=== PATIENT | female | born 1980 | race Caucasian/White ===

== ENCOUNTER 2016-02-22 03:35 | Inpatient (IN) | payer BC, OTHER ==
[2016-02-22] VITALS (96 sets, daily range): BP systolic 81–142; BP diastolic 39–92; PULSE 62–166; RESP 16–18; TEMP 97.9–98.4
[~2016-02-22] VITALS: Ht 157.5 cm; Wt 73.5 kg
[~2016-02-22 03:35] MED LIST: PREN1TAB18
[2016-02-22] MEDS ORDERED: LACTATED RINGER'S 1000 ML INJ 1,000 ML IV PRN (03:58)
[2016-02-22] MEDS ORDERED: ceFAZolin 2 GM PREMIX 50 ML IV ONE (04:00)
[2016-02-22] MEDS ORDERED: MINERAL OIL 10 ML VIAL TOPICAL PRN (04:00)
[2016-02-22] MEDS ORDERED: LIDOCAINE HCL 1% 50 ML VIAL I-DERMAL PRN (04:00)
[2016-02-22] MEDS ORDERED: SODIUM CHLORID 0.9% 500 ML INJ 500 ML IV PRN (04:00)
[2016-02-22] MEDS ORDERED: CITRIC ACID-SODIUM CITRATE LIQ 30 ML UDC PO SCH (04:00)
[2016-02-22] MEDS ORDERED: OXYTOCIN 30 UNITS-500ML PREMIX 500 ML IV ONE (04:00)
[2016-02-22] MEDS ORDERED: ONDANSETRON HCL 4 MG/2 ML VIAL IV PRN (04:00)
[2016-02-22] MEDS ORDERED: LIDOCAINE HCL 1% 50 ML VIAL INFIL PRN (04:00)
[2016-02-22] MEDS ORDERED: SODIUM CHLOR 0.9% 1000 ML INJ 1,000 ML IV PRN (04:18)
--- NOTE | 2016-02-22 04:28 | HHI.HP ---
HPI Chief Complaint Rupture of membranes Date Seen: Feb 22, 2016 Time Seen: 04:00 Travel History International Travel<30 Days: No Contact w/Intl Traveler<30Days: No Known Affected Area: No History of Present Illness HPI 36-year-old at 40 weeks and 4 days of gestation, EDC 02/18/16, patient presents to OB ED with complain of contractions and sudden rupture of membranes at 02.30 hours today. The patient denies vaginal bleeding. She reports presence of movement. She stated that contractions are regular. care is with the [facility], course is significant for advanced maternal age and fetus with cleft heart palate and unilateral cleft lip and GBS positive. Amnisure test performed in OB ED is positive. Para: 0 : 2 Miscarriage: 1 : 0 History Past Medical History Narrative Medical History of ovarian cysts Obstetric History Obstetric History Spontaneous 1 Past Surgical History Narrative Surgical Status post laparoscopic bilateral ovarian cystectomy in March 2014 Family History Narrative Family History Grandmother had diabetes and hypertension, mother suffered heart attack, father has heart disease Social History Alcohol Use: No Tobacco Use: No Substance Abuse: No Allergies-Medications (Allergen,Severity, Reaction): Coded Allergies: Penicillin (Verified Allergy, Severe, Hives, 02/20/16) Home Meds Reported Medications Vitamins W/ Fe Aspart (Prenate Star 20-1 mg)1 Tab Tab 12/13/15 Review of Systems Except as stated in HPI: all other systems reviewed are Neg Genitourinary: Other (premature rupture of membranes, contractions) Physical Exam Narrative GENERAL: Well-nourished, well-developed patient. SKIN: Warm and dry. HEAD: Normocephalic and atraumatic. EYES: No scleral icterus. No injection or drainage. ENT: No nasal drainage noted. Mucous membranes pink. Airway patent. NECK: Supple, trachea midline. No JVD. CARDIOVASCULAR: Regular rate and rhythm without murmurs, gallops, or rubs. RESPIRATORY: Breath sounds equal bilaterally. No accessory muscle use. BREASTS: Bilateral exam showed no masses , no retractions, no nipple discharge. ABDOMEN/GI: Abdomen soft, gravid, non-tender, bowel sounds present, no rebound, no guarding Gravid to 41 weeks size Fundal Height: 41 cm GENITOURINARY: External Genitalia: intact and normal in appearance BUS glands: Normal Cervix: 1 cm, 80% effaced, -3 station, posterior, patient is grossly ruptured with pooling of fluid in the vaginal vault Dilatation: 1 cm Effacement: 80% Station: -3 Presentation: Cephalic Membranes: Intact Uterine Contractions: Irregular FHT's: Category: one Baseline: 130s Reactive: Yes Variability: Moderate Decels: None EXTREMITIES: No cyanosis or edema. BACK: Nontender without obvious deformity. No CVA tenderness. NEUROLOGICAL: Awake and alert. Motor and sensory grossly within normal limits. Five out of 5 muscle strength in all muscle groups. Normal speech. Data Data Vital Signs Reviewed: Yes Orders Ob (2e) Additional Admit Info (02/22/16 03:57) Admit To Inpatient (02/22/16 ) Code Status (02/22/16 03:58) Vital Signs (Adult) .Per protocol (02/22/16 03:58) ^ Heart (02/22/16 03:58) ^ Amnioinfusion (02/22/16 03:58) Urinary Catheter Management .ONCE (02/22/16 03:58) Diet Liquid (02/22/16 Breakfast) Lactated Ringer's 1000 Ml Inj (Lr 1000 M (02/22/16 03:58) Lactated Ringer's 1000 Ml Inj (Lr 1000 M (02/22/16 03:58) Sodium Chlorid 0.9% 500 Ml Inj (Ns 500 M (02/22/16 04:00) Sodium Chlor 0.9% 1000 Ml Inj (Ns 1000 M (02/22/16 04:18) Lidocaine 1% Inj (50 Ml) (Xylocaine 1% I (02/22/16 04:00) Citric Acid-Sodium Citrate Liq (Bicitra (02/22/16 04:00) Ondansetron Inj (Zofran Inj) (02/22/16 04:00) Fentanyl Inj (Fentanyl Inj) (02/22/16 04:00) Fentanyl Inj (Fentanyl Inj) (02/22/16 04:00) Cefazolin 2 Gm Premix (Ancef 2 Gm Premix (02/22/16 04:00) Cefazolin Inj (Ancef Inj) (02/22/16 08:00) Complete Blood Count With Diff (02/22/16 03:58) Hold Clot (02/22/16 03:58) Abo/Rh Blood Type (02/22/16 03:58) Urinalysis - C+S If Indicated (02/22/16 03:58) Type And Screen (02/22/16 03:58) Resp Oxygen Non Rebreathe Mask (02/22/16 ) ^ Epidural / Intrathecal Infus (02/22/16 03:58) Oxytocin 30 Units-500ml Premix (Pitocin (02/22/16 04:00) Lidocaine 1% Inj (50 Ml) (Xylocaine 1% I (02/22/16 04:00) Light Mineral Oil (Muri-Lube Oil) (02/22/16 04:00) Inpatient Certification (02/22/16 ) Assessment/Plan Problem List: (1) Post term over 40 weeks (2) Premature rupture of membranes (3) Positive GBS test (4) 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 1. Postterm /Premature rupture of membranes in active labor * Admit to labor and delivery * Continuous heart monitoring * Send admission blood work * Monitor progress of labor * Pitocin for augmentation of labor * Anticipate vaginal delivery * Keep patient nothing by mouth * Patient may have IV pain medications or epidural for pain management 2. GBS positive * We'll give Ancef for GBS prophylaxis(patient allergic to penicillin with rash) * 3. Fetus with cleft hard palate with unilateral cleft lip * Will notify neonatology and respiratory team Discharge Planning We'll discharge patient to home in 2-3 days after delivery Vladimir Anders MD Feb 22, 2016 04:28
[2016-02-22] MEDS: LACTATED RINGER'S 1000 ML INJ 1,000 ML IV SCH ×2 (04:30→11:58)
[2016-02-22 04:42] LABS: AUTOMATED NEUTROPHIL # 11.5 TH/MM3 (1.8-7.7); BASOPHIL # 0.1 TH/MM3 (0-0.2); BASOPHIL % 0.6 % (0.0-2.0); EOSINOPHIL # 0.1 TH/MM3 (0-0.4); EOSINOPHIL % 0.7 % (0.0-4.0); HEMATOCRIT 35.3 % (35.0-46.0); HEMO FLAGS AUTO DIFF; LYMPH % 19.4 % (9.0-44.0); MEAN CELL VOLUME 86.9 FL (80.0-100.0); MEAN CORPUSCULAR HEMOGLOBIN 30.4 PG (27.0-34.0); MONO % 5.3 % (0.0-8.0); PLATELET COUNT 256 TH/MM3 (150-450); RED BLOOD COUNT 4.06 MIL/MM3 (4.00-5.30); RED CELL DISTRIBUTION WIDTH 13.2 % (11.6-17.2); WHITE BLOOD COUNT 15.5 TH/MM3 (4.0-11.0)
[2016-02-22 04:52] LABS: BACTERIA, URINE OCC /hpf; BLOOD, URINE TRACE (NEG); COMMENT (UR) CULTURE INDICATED; CULTURE IF INDICATED CULTURE INDICATED; GLUCOSE,URINE NEG (NEG); HYALINE CAST, URINE 3 /lpf (RARE); KETONE, URINE NEG (NEG); MUCUS URINE FEW /lpf (OCC); NITRITE,URINE NEG (NEG); SQUAMOUS EPITHELIAL CELL URINE 15 /hpf (0-5); URINE COLOR LIGHT-YELLOW (YELLW/STRAW)
[2016-02-22 05:33] LABS: BANDS 6 % (0-6); BASOPHILS 2 % (0-2); METAMYELOCYTES 1 % (0-1); NEUTROPHIL # MANUAL DIFF 12.1 TH/MM3 (1.8-7.7); POLYS (SEG NEUTROPHILS) 70 % (16-70); PROMYELOCYTES 1 % (0-0); SCAN/DIFF FINAL DIFF MANUAL; WBC DIFF SAMPLE 100
[2016-02-22 05:34] LABS: PLATELET ESTIMATE SMEAR NORMAL (NORMAL); PLATELET MORPHOLOGY NORMAL (NORMAL)
[2016-02-22] MEDS ORDERED: OXYTOCIN 30 UNITS-500ML PREMIX 500 ML IV SCH (08:15)
--- NOTE | 2016-02-22 10:23 | PD.LABORPN ---
Subjective Subjective Changing shifts Dr. Son coming on duty; Chart reviewed this patient is a 36-year-old 2 para 0 at 40 weeks and 4 days who presented this a.m. 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 Advanced maternal age Baby has a cleft palate and cleft lip Presently she is lizy every 4-5 minutes moderate intensity IUPC is in place patient does not desire an epidural or any pain medicine at this point A review of the monitor strip including the heart rate monitor and uterine contraction monitor were reviewed with the parents A review of Pitocin was done Questions were answered Objective Vital Signs Vital Signs Date Time Temp Pulse Resp B/P Pulse Ox O2 Delivery O2 Flow Rate FiO2 02/22/16 07:11 98.3 02/22/16 07:11 16 02/22/16 07:10 84 115/81 02/22/16 04:05 18 Objective Pelvic Exam: Cervix: [-] Midline soft Dilatation: [-] 2-3 cm dilated Effacement: [-] 100% effaced Station: [-] -2 station Presentation: [-] Vertex Membranes: ruptured] Uterine Contractions: [-] Every 4-5 minutes FHT's: Category: [-] 1 Baseline: [-] 140 Reactive: [-] + Accelerations up to 170 Variability: [-] Moderate fkak-ta-czed variability Decels: [-] None Assessment/Plan Problem List: (1) Post term over 40 weeks (2) Premature rupture of membranes (3) Positive GBS test (4) 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
--- NOTE | 2016-02-22 10:45 | PD.LABORPN ---
Subjective Subjective 36 y/o at 40/4 weeks. Admitted for SROM early this morning. Patient seen and examined this morning. Denies any complaints/concerns. Currently dilated to 2-3 cm. Having contractions every 3-4 minutes. Denies any headache, changes in vision, chest pain, SOB, leg pain. (Gustavo Partida MD R1) Objective Vital Signs Vital Signs Date Time Temp Pulse Resp B/P Pulse Ox O2 Delivery O2 Flow Rate FiO2 02/22/16 07:11 98.3 02/22/16 07:11 16 02/22/16 07:10 84 115/81 02/22/16 04:05 18 Objective Pelvic Exam: Cervix: Midline soft Dilatation: 2-3 cm Effacement: 100% Station: -2 Presentation: Vertex Membranes: Ruptured Uterine Contractions: Every 4-5 minutes FHT's: Category: 1 Baseline: 140 Reactive: yes Variability: moderate Decels: None (Gustavo Partida MD R1) Assessment/Plan Problem List: (1) Post term over 40 weeks (2) Premature rupture of membranes (3) Positive GBS test (4) 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 Plan - Expectant management - Continuous heart monitoring - GBS positive; receiving Ancef - Continue Pitocin - Anticipate vaginal delivery (Gustavo Partida MD R1) Assessment and Plan Patient seen and examined with the resident under direct supervision, I agree with the assessment and plan. (Vladimir Anders MD) Gustavo Partida MD R1 Feb 22, 2016 10:45 Vladimir Anders MD Feb 23, 2016 17:35
[2016-02-22] MEDS ORDERED: fentaNYL 2MCG-BUPIV 0.125% INJ 100 ML ONE (12:01)
[2016-02-22] MEDS ORDERED: ePHEDrine/NS 50 MG/5 ML SYR ONE (12:01)
--- NOTE | 2016-02-22 14:30 | PD.LABORPN ---
Subjective Subjective Patient lying in bed. Feeling pressure. Given ephedrine for low blood pressures. 4cm at 1419 this afternoon. Objective Vital Signs Vital Signs Date Time Temp Pulse Resp B/P Pulse Ox O2 Delivery O2 Flow Rate FiO2 02/22/16 13:54 16 02/22/16 13:45 67 102/55 02/22/16 13:40 73 02/22/16 13:36 63 109/50 02/22/16 13:35 76 02/22/16 13:31 72 108/46 02/22/16 13:30 79 02/22/16 13:25 80 02/22/16 13:20 77 02/22/16 13:18 65 102/58 02/22/16 13:17 16 02/22/16 13:15 77 101/47 02/22/16 13:10 71 02/22/16 13:05 72 02/22/16 13:01 88 102/59 02/22/16 13:00 73 02/22/16 12:55 81 02/22/16 12:50 78 02/22/16 12:48 85 100/63 02/22/16 12:45 67 02/22/16 12:40 89 99/57 02/22/16 12:37 88/56 02/22/16 12:37 166 02/22/16 12:37 103/62 02/22/16 12:35 80 02/22/16 12:30 98.3 02/22/16 12:30 73 02/22/16 12:26 144 101/60 02/22/16 12:25 75 02/22/16 12:25 16 02/22/16 12:20 85 100/56 02/22/16 12:20 85 02/22/16 12:15 82 02/22/16 12:12 81 106/64 02/22/16 12:10 84 02/22/16 12:00 16 02/22/16 11:44 16 02/22/16 10:48 75 113/68 02/22/16 10:48 97.9 02/22/16 10:47 16 02/22/16 07:11 98.3 02/22/16 07:11 16 02/22/16 07:10 84 115/81 Objective Pelvic Exam: Cervix: midline Dilatation: 4 Effacement: 100% Station: -2 Presentation: vertex Membranes: ruptured Uterine Contractions: every 1-4 minutes FHT's: Category: 1 Baseline: 135 Reactive: yes Variability: moderate Decels: none Assessment/Plan Problem List: (1) Post term over 40 weeks (2) Premature rupture of membranes (3) Positive GBS test (4) 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 4 cm dilated. Contractions every 1-4 minutes. - Continue expectant management, pitocin - Continuous heart monitoring - Monitor maternal blood pressures - Plan for vaginal delivery Gustavo Partida MD R1 Feb 22, 2016 14:29
[2016-02-22] MEDS ORDERED: NO SYSTEM NARCOTICS XX PRN (15:15)
[2016-02-22] MEDS ORDERED: ePHEDrine/NS 50 MG/5 ML SYR IV PRN (15:15)
[2016-02-22] MEDS ORDERED: fentaNYL 2MCG-BUPIV 0.125% INJ 100 ML EPIDURAL SCH (15:15)
[2016-02-22] MEDS ORDERED: DO NOT ADMINISTER ANTICOAGULANTS XX PRN (15:15)
--- NOTE | 2016-02-22 17:32 | PD.LABORPN ---
Subjective Subjective 5 cm dilated Category 1 tracing Pitocin at 6 milliunits Tractions every 2 minutes Continue to monitorr Objective Vital Signs Vital Signs Date Time Temp Pulse Resp B/P Pulse Ox O2 Delivery O2 Flow Rate FiO2 02/22/16 16:15 88 104/64 02/22/16 16:00 96 104/63 02/22/16 15:45 100 103/67 02/22/16 15:43 87 109/70 02/22/16 15:31 100 112/68 02/22/16 15:20 18 02/22/16 15:15 92 110/73 02/22/16 15:00 101 95/60 02/22/16 14:45 79 112/66 02/22/16 14:32 76 107/57 02/22/16 14:31 70 93/49 02/22/16 14:30 98.0 16 02/22/16 14:28 83 109/57 02/22/16 14:18 86 98/65 02/22/16 14:17 89 91/70 02/22/16 14:15 107/72 02/22/16 14:14 76 94/55 02/22/16 14:10 69 91/55 02/22/16 14:07 70 100/50 02/22/16 14:05 67 98/48 02/22/16 14:03 67 87/51 02/22/16 14:02 65 90/39 02/22/16 14:00 62 96/45 02/22/16 13:54 16 02/22/16 13:50 79 02/22/16 13:45 67 102/55 02/22/16 13:45 83 02/22/16 13:40 73 02/22/16 13:36 63 109/50 02/22/16 13:35 76 02/22/16 13:31 72 108/46 02/22/16 13:30 79 02/22/16 13:25 80 02/22/16 13:20 77 02/22/16 13:18 65 102/58 02/22/16 13:17 16 02/22/16 13:15 77 101/47 02/22/16 13:15 71 02/22/16 13:10 71 02/22/16 13:05 72 02/22/16 13:01 88 102/59 02/22/16 13:00 73 02/22/16 12:55 81 02/22/16 12:50 78 02/22/16 12:48 85 100/63 02/22/16 12:45 67 02/22/16 12:40 81 02/22/16 12:40 89 99/57 02/22/16 12:37 84 02/22/16 12:37 88/56 02/22/16 12:37 166 02/22/16 12:37 103/62 02/22/16 12:35 80 02/22/16 12:30 98.3 02/22/16 12:30 73 02/22/16 12:26 144 101/60 02/22/16 12:25 75 02/22/16 12:25 16 02/22/16 12:20 85 100/56 02/22/16 12:20 85 02/22/16 12:15 82 02/22/16 12:12 81 106/64 02/22/16 12:10 84 02/22/16 12:00 16 02/22/16 11:44 16 02/22/16 10:48 75 113/68 02/22/16 10:48 97.9 02/22/16 10:47 16 Objective Pelvic Exam: Cervix: [-] Dilatation: [-] Effacement: [-] Station: [-] Presentation: [-] Membranes: [intact or ruptured] Uterine Contractions: [-] FHT's: Category: [-] Baseline: [-] Reactive: [-] Variability: [-] Decels: [-] Assessment/Plan Problem List: (1) Post term over 40 weeks (2) Premature rupture of membranes (3) Positive GBS test (4) 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
[2016-02-22] MEDS ORDERED: LIDOCAINE HCL 1.5% PF SOLN 20 ML AMP ONE ×2 (18:16→20:25)
[2016-02-23] VITALS (20 sets, daily range): BP systolic 93–127; BP diastolic 55–76; PULSE 64–92; RESP 16–18; TEMP 98.3–99; O2SAT 94–97
[2016-02-23] MEDS: LACTATED RINGER'S 1000 ML INJ 1,000 ML IV SCH (00:19)
[2016-02-23] MEDS ORDERED: LACTATED RINGER'S 1000 ML INJ 1,000 ML IV ONE (01:55)
--- NOTE | 2016-02-23 01:55 | PD.LABORPN ---
Subjective Subjective Patient starting to feel her contractions with the epidural It was explained to the patient she has been 7 cm now for almost 3-1/2 hours Adequate contraction pattern with IUPC Category 1 tracing Objective Vital Signs Vital Signs Date Time Temp Pulse Resp B/P Pulse Ox O2 Delivery O2 Flow Rate FiO2 02/23/16 01:35 18 02/23/16 01:30 83 114/66 02/23/16 01:15 92 02/23/16 00:58 18 02/23/16 00:58 98.9 02/23/16 00:55 81 02/23/16 00:50 85 02/23/16 00:45 86 107/67 02/23/16 00:45 83 02/23/16 00:40 85 02/23/16 00:35 87 02/23/16 00:30 87 02/23/16 00:30 80 116/63 02/23/16 00:21 18 02/22/16 23:45 18 02/22/16 23:40 87 02/22/16 23:35 76 02/22/16 23:30 78 111/55 02/22/16 23:30 67 02/22/16 23:19 18 02/22/16 23:15 78 99/56 02/22/16 23:15 78 02/22/16 23:00 77 02/22/16 22:45 82 02/22/16 22:44 18 02/22/16 22:40 87 106/67 02/22/16 22:35 91 99/80 02/22/16 22:30 96 103/73 02/22/16 22:26 102 102/61 02/22/16 22:25 106 02/22/16 22:25 104 87/41 02/22/16 22:20 92 02/22/16 22:20 98 107/61 02/22/16 22:05 97 02/22/16 22:00 102 116/92 02/22/16 22:00 84 02/22/16 21:09 95 118/83 02/22/16 21:00 86 119/75 02/22/16 20:00 97 117/84 02/22/16 19:42 98.0 02/22/16 19:31 91 18 130/85 02/22/16 19:20 18 02/22/16 19:16 102 135/82 02/22/16 19:13 18 02/22/16 19:00 88 105/63 02/22/16 18:50 78 105/56 02/22/16 18:48 82 102/58 02/22/16 18:45 85 81/56 02/22/16 18:30 83 104/55 02/22/16 18:16 72 101/50 02/22/16 18:15 98.4 02/22/16 18:12 18 02/22/16 18:01 84 142/59 Objective Pelvic Exam: Cervix: [-] Midline Dilatation: [-] 7 cm Effacement: [-] 100% effaced Station: [-] -1-0 station Presentation: [-] Vertex Membranes: [or ruptured] Uterine Contractions: [-] Every 2-3 minutes FHT's: Category: [-] 1 Baseline: [-]140 Reactive: [-] + Variability: [-] Moderate Decels: [-] 0 Assessment/Plan Problem List: (1) Post term over 40 weeks (2) Premature rupture of membranes (3) Positive GBS test (4) 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
[2016-02-23] MEDS ORDERED: OXYTOCIN 10 UNIT/ML AMP ONE (02:11)
[2016-02-23] MEDS ORDERED: ACETAMINOPHEN 1000 MG/100 ML VIAL IV ONE ×2 (02:19→03:30)
[2016-02-23] MEDS ORDERED: LACTATED RINGER'S 1000 ML INJ 1,000 ML IV SCH ×2 (02:25→08:11)
[2016-02-23 02:47] LABS: BLOOD GAS BASE EXCESS -0.7 mmol/L (-2-2); BLOOD GAS O2 HGB SATURATION 22 % (90-100); CORD BLOOD GAS HCO3 25 mmol/L (21-29); CORD BLOOD GAS PCO2 49 mmHG (34-78); CORD BLOOD GAS PH 7.32 (7.14-7.42); CORD BLOOD GAS PO2 16 mmHG (3.0-40.0); DRAW SITE CORD BLOOD; STAT YES
[2016-02-23] MEDS ORDERED: MORPHINE SULFATE PF 5 MG/10 ML VIAL ONE (02:50)
[2016-02-23] MEDS ORDERED: ONDANSETRON HCL 4 MG/2 ML VIAL ONE (02:50)
[2016-02-23] MEDS ORDERED: CLINDAMYCIN INJ 600 MG in SODIUM CHLORIDE 0.9% INJ 100 ML IV SCH (03:00)
[2016-02-23] MEDS ORDERED: DOCUSATE SODIUM 50 MG/SENNA 8.6 MG TAB PO PRN (03:15)
[2016-02-23] MEDS ORDERED: SODIUM CHLORIDE 0.9% FLUSH 5 ML FLUSH IV PRN (03:15)
[2016-02-23] MEDS ORDERED: OXYTOCIN 30 UNITS-500ML PREMIX 500 ML IV ONE (03:15)
[2016-02-23] MEDS ORDERED: ZOLPIDEM TARTRATE 5 MG TAB PO PRN (03:15)
[2016-02-23] MEDS ORDERED: ACETAMINOPHEN 325 MG TAB PO PRN (03:15)
[2016-02-23] MEDS ORDERED: oxyCODONE/ACETAMINOPHEN 5 MG/325 MG TAB PO PRN ×2 (03:15)
[2016-02-23] MEDS ORDERED: KETOROLAC TROMETHAMINE 60 MG/2 ML (IM) VIAL IM PRN (03:15)
[2016-02-23] MEDS ORDERED: ONDANSETRON HCL 4 MG/2 ML VIAL IV PUSH PRN (03:15)
[2016-02-23] MEDS ORDERED: SIMETHICONE 80 MG CHEWABLE TAB PO PRN (03:15)
--- NOTE | 2016-02-23 03:18 | PD.OP ---
Operative Report Date of Surgery: Feb 23, 2016 Preoperative Diagnosis: Intrauterine at 40 weeks and 4 days Postdates Baby with cleft lip and cleft palate Failure to progress in labor Postoperative Diagnosis: Same Light meconium-stained amniotic fluid Nuchal cord 2 moderately tight Procedure: Primary low segment transverse section Anesthesia: Epidural Surgeon: Alysia Son Laser Printing Operator(s): OR staff Resident Surgeon: None Operation and Findings: Viable female infant weight 7 lbs. 12 oz. Apgars of 8 at 1 minute and 8 at 5 minutes Nuchal cord moderately tight 2 Light meconium amniotic fluid Anesthesiologist:: ( Dr. Sahu) Estimated blood loss: ( 600 cc) Sponge and instrument count: (Correct ) Drains: ( None) Complications: (None ) Indications for procedure: ( . To progress in labor with arrest at 7 ) Findings: ( ) Viable female weight 7 lbs. 12 oz. Apgars of 8 at 1 minute and 8 at 5 minutes light meconium-stained amniotic fluid nuchal cord moderately tight 2 and the baby has a cleft lip and cleft palate Timeout done The patient was taken to the operating room after appropriate levels of epidural anesthesia were achieved she was placed in the supine position. A Costa catheter was inserted under sterile conditions and draining adequate clear urine. Intermittent compression hoses were placed and functioning. Bovie pad was placed and grounded. The abdomen was shaved prepped and draped in the usual sterile fashion. A transverse Pfannenstiel incision was made carried down through the skin subcutaneous tissue. The fascia was opened transversely. from the muscles in the midline. The rectus muscles were . Peritoneal cavity opened and the abdominal cavity entered. The bladder flap was taken down transversely and a low segment transverse incision made into the lower uterine segment. The fluid was (light meconium-stained ). The was vertex. The vertex was delivered nose and mouth suctioned well the remainder of the body was then delivered. Cord doubly clamped and cut and the handed over to the awaiting nursing staff. The placenta spontaneously delivered intact with fundal massage. The uterus was then exteriorized cleaned of excessive blood and debris. The incision was then closed with 0 chromic in a continuous interlocking stitch. The stitch line was imbricated also using 0 chromic. No active bleeding. Tubes and ovaries were inspected and found to be normal. The abdominal cavity was then irrigated. The uterus placed back into the abdomen. Paracolic gutters cleaned of excessive blood and debris. Interceed was then placed over the incision and the anterior surface of the uterus in an inverted T. The peritoneum was then closed with 2-0 Vicryl. The muscles reapproximated. Inspection of the muscle bed demonstrated no bleeding. Intercede placed over the muscle at the midline. The fascia was then closed with 0 Vicryl in a continuous stitch. The subcutaneous tissue was irrigated bleeders controlled with Bovie. Tasneem's fascia closed with 2-0 Vicryl. The skin was closed using ( subcutaneous stitch with 3-0 Monocryl). The uterus was massaged clearing blood and clots. The patient was cleaned. Pressure dressing and abdominal binder placed. Patient then transferred to the recovery room in stable condition, where her vital signs are stable ( ). Urine is clear and adequate. Baby transferred to the nursery in stable condition. Alysia Oswald MD Feb 23, 2016 03:18
[2016-02-23] MEDS ORDERED: KETOROLAC TROMETHAMINE 30 MG/ML (IVP) VIAL ONE (03:26)
[2016-02-23] MEDS ORDERED: CITRIC ACID-SODIUM CITRATE LIQ 30 ML UDC PO SCH (03:30)
[2016-02-23 06:02] LABS: AUTOMATED NEUTROPHIL # 19.6 TH/MM3 (1.8-7.7); BASOPHIL % 0.1 % (0.0-2.0); HEMATOCRIT 33.1 % (35.0-46.0); LYMPH % 4.7 % (9.0-44.0); MEAN CELL VOLUME 87.2 FL (80.0-100.0); MEAN CORPUSCULAR HEMOGLOBIN 30.4 PG (27.0-34.0); MEAN CORPUSCULAR HGB CONC 34.8 % (32.0-36.0); MONO % 4.1 % (0.0-8.0); NEUT % 91.1 % (16.0-70.0); PLATELET COUNT 215 TH/MM3 (150-450); RED CELL DISTRIBUTION WIDTH 13.2 % (11.6-17.2); WHITE BLOOD COUNT 21.5 TH/MM3 (4.0-11.0)
[2016-02-23 06:03] LABS: HEMO FLAGS AUTO DIFF
[2016-02-23 06:51] LABS: BANDS 32 % (0-6); NEUTROPHIL # MANUAL DIFF 20.6 TH/MM3 (1.8-7.7); PLATELET ESTIMATE SMEAR NORMAL (NORMAL); PLATELET MORPHOLOGY NORMAL (NORMAL); POLYS (SEG NEUTROPHILS) 64 % (16-70); WBC DIFF SAMPLE 100
[2016-02-23 06:52] LABS: SCAN/DIFF FINAL DIFF MANUAL
--- NOTE | 2016-02-23 08:23 | HHI.OB ---
Subjective Remarks 36 year old POD #0 after for failure to progress. Doing well this morning. She had one episode of emesis at 5:30 AM. Now feeling ok, not currently nauseous, and chewing on ice chips. Exclusively . Uncertain about control at this time. Baby was born with cleft lip and palate and is currently in the ICU. No chest pain, shortness of breath, abdominal pain, no problems with the incision site. Objective Vitals/I&O Vital Signs Date Time Temp Pulse Resp B/P Pulse Ox O2 Delivery O2 Flow Rate FiO2 02/23/16 05:10 99.0 64 18 127/76 02/23/16 04:10 65 16 107/62 95 02/23/16 03:55 67 16 94 02/23/16 03:55 121/70 02/23/16 03:40 16 02/23/16 03:23 78 16 104/57 97 02/23/16 03:00 98.7 02/23/16 03:00 80 16 97/57 97 02/23/16 01:50 85 18 02/23/16 01:45 91 02/23/16 01:45 90 114/74 02/23/16 01:35 18 02/23/16 01:30 83 114/66 02/23/16 01:30 80 02/23/16 01:15 92 02/23/16 00:58 18 02/23/16 00:58 98.9 02/23/16 00:55 81 02/23/16 00:50 85 02/23/16 00:45 86 107/67 02/23/16 00:45 83 02/23/16 00:40 85 02/23/16 00:35 87 02/23/16 00:30 87 02/23/16 00:30 80 116/63 02/23/16 00:21 18 02/22/16 23:45 18 02/22/16 23:40 87 02/22/16 23:35 76 02/22/16 23:30 78 111/55 02/22/16 23:30 67 02/22/16 23:19 18 02/22/16 23:15 78 99/56 02/22/16 23:15 78 02/22/16 23:00 77 02/22/16 22:45 82 02/22/16 22:44 18 02/22/16 22:40 87 106/67 02/22/16 22:35 91 99/80 02/22/16 22:30 96 103/73 02/22/16 22:26 102 102/61 02/22/16 22:25 106 02/22/16 22:25 104 87/41 02/22/16 22:20 92 02/22/16 22:20 98 107/61 02/22/16 22:05 97 02/22/16 22:00 102 116/92 02/22/16 22:00 84 02/22/16 21:09 95 118/83 02/22/16 21:00 86 119/75 02/22/16 20:00 97 117/84 02/22/16 19:42 98.0 02/22/16 19:31 91 18 130/85 02/22/16 19:20 18 02/22/16 19:16 102 135/82 02/22/16 19:13 18 02/22/16 19:00 88 105/63 02/22/16 18:50 78 105/56 02/22/16 18:48 82 102/58 02/22/16 18:45 85 81/56 02/22/16 18:30 83 104/55 02/22/16 18:16 72 101/50 02/22/16 18:15 98.4 02/22/16 18:12 18 02/22/16 18:01 84 142/59 02/22/16 17:45 85 120/77 02/22/16 16:15 88 104/64 02/22/16 16:00 96 104/63 02/22/16 15:45 100 103/67 02/22/16 15:43 87 109/70 02/22/16 15:31 100 112/68 02/22/16 15:20 18 02/22/16 15:15 92 110/73 02/22/16 15:00 101 95/60 02/22/16 14:45 79 112/66 02/22/16 14:32 76 107/57 02/22/16 14:31 70 93/49 02/22/16 14:30 98.0 16 02/22/16 14:28 83 109/57 02/22/16 14:18 86 98/65 02/22/16 14:17 89 91/70 02/22/16 14:15 107/72 02/22/16 14:14 76 94/55 02/22/16 14:10 69 91/55 02/22/16 14:07 70 100/50 02/22/16 14:05 67 98/48 02/22/16 14:03 67 87/51 02/22/16 14:02 65 90/39 02/22/16 14:00 62 96/45 02/22/16 13:54 16 02/22/16 13:50 79 02/22/16 13:45 67 102/55 02/22/16 13:45 83 02/22/16 13:40 73 02/22/16 13:36 63 109/50 02/22/16 13:35 76 02/22/16 13:31 72 108/46 02/22/16 13:30 79 02/22/16 13:25 80 02/22/16 13:20 77 02/22/16 13:18 65 102/58 02/22/16 13:17 16 02/22/16 13:15 77 101/47 02/22/16 13:15 71 02/22/16 13:10 71 02/22/16 13:05 72 02/22/16 13:01 88 102/59 02/22/16 13:00 73 02/22/16 12:55 81 02/22/16 12:50 78 02/22/16 12:48 85 100/63 02/22/16 12:45 67 02/22/16 12:40 81 02/22/16 12:40 89 99/57 02/22/16 12:37 84 02/22/16 12:37 88/56 02/22/16 12:37 166 02/22/16 12:37 103/62 02/22/16 12:35 80 02/22/16 12:30 98.3 02/22/16 12:30 73 02/22/16 12:26 144 101/60 02/22/16 12:25 75 02/22/16 12:25 16 02/22/16 12:20 85 100/56 02/22/16 12:20 85 02/22/16 12:15 82 02/22/16 12:12 81 106/64 02/22/16 12:10 84 02/22/16 12:00 16 02/22/16 11:44 16 02/22/16 10:48 75 113/68 02/22/16 10:48 97.9 02/22/16 10:47 16 Result Diagram: 02/23/16 0548 Objective Remarks GENERAL: Well-nourished, well-developed patient. CARDIOVASCULAR: Regular rate and rhythm without murmurs, gallops, or rubs. RESPIRATORY: Breath sounds equal bilaterally. No accessory muscle use. ABDOMEN/GI: Abdomen soft, non-tender, bowel sounds present. Incision: Clean, dry and intact. Fundus: Firm, non-tender at umbilicus. GENITOURINARY: Light to moderate bleeding. EXTREMITIES: No cyanosis or edema, non-tender, without signs of DVT. Medications and IVs Current Medications Medications (Trade) Dose Ordered Sig/Naila Route Start Time Stop Time Status Last Admin (Lr 1000 ml Inj) 1,000 ml @ 100 mls/hr Q10H IV 02/23/16 08:11 02/24/16 04:10 (NS Flush) 2 ml BID IV 02/23/16 09:00 (NS Flush) 2 ml UNSCH PRN IV 02/23/16 03:15 (Mylicon Chew) 80 mg QID PRN PO 02/23/16 03:15 (Tylenol) 650 mg Q6H PRN PO 02/23/16 03:15 (Motrin) 600 mg Q6H PRN PO 02/23/16 03:15 (Toradol Inj) 30 mg Q6H PRN IM 02/23/16 03:15 02/24/16 03:14 (Percocet 5-325 Mg) 1 tab Q4H PRN PO 02/23/16 03:15 (Percocet 5-325 Mg) 2 tab Q4H PRN PO 02/23/16 03:15 (Rola-Colace) 2 tab Q12H PRN PO 02/23/16 03:15 (Ambien) 5 mg HS PRN PO 02/23/16 03:15 (M-M-R Ii Inj) 0.5 ml ONCE ONCE SQ 02/24/16 16:00 02/24/16 16:01 (Boostrix Inj) 0.5 ml ONCE ONCE IM 02/24/16 16:00 02/24/16 16:01 Ondansetron HCl 4 mg 4 mg Q6H PRN IV PUSH 02/23/16 03:15 (Ancef Inj/NS Inj) 100 ml @ 200 mls/hr Q8H IV 02/23/16 08:00 02/23/16 16:29 Assessment/Plan Assessment and Plan 36 year old POD 0 after for failure to progress. - Phenergan for nausea/vomiting. - Advance diet as tolerated. - Encourage ambulation. - Monitor lochia - Monitor incision site - Percocet, ibuprofen PRN for pain control - Discuss control options - Anticipate discharge in 2 to 3 days. Discussed with Cas Turner MD R2 Feb 23, 2016 08:23
[2016-02-23] MEDS ORDERED: PROMETHAZINE INJ 25 MG/ML VIAL IM PRN (08:30)
[2016-02-23] MEDS ORDERED: SODIUM CHLORIDE 0.9% FLUSH 5 ML FLUSH IV SCH (09:00)
[2016-02-23] MEDS ORDERED: OXYTOCIN 30 UNITS-500ML PREMIX 500 ML IV PRN (13:15)
[2016-02-23] MEDS: IBUPROFEN 600 MG TAB PO PRN ×2 (15:02→21:42)
[2016-02-24] MEDS: IBUPROFEN 600 MG TAB PO PRN ×4 (03:22→21:42)
--- NOTE | 2016-02-24 07:21 | HHI.OB ---
Subjective Post Operative Day: 1 Remarks Postoperative day number 1. AFVSS overnight. Pain controlled with medications. Incision not draining. Decreased lochia. Denies dysuria. No breast tenderness. She is feeding the baby via breast/bottle. Appetite good. No nausea or vomiting. Endorses flatus. No bowel movement. Ambulating well. Denies calf pain, shortness of breath, or cough. Otherwise, she is doing well this morning and has no other complaints. (Gustavo Partida MD R1) Objective Vitals/I&O Vital Signs Date Time Temp Pulse Resp B/P Pulse Ox O2 Delivery O2 Flow Rate FiO2 02/23/16 19:15 70 18 93/55 02/23/16 17:00 98.3 78 18 95/58 (Gustavo Partida MD R1) Result Diagram: 02/23/16 0548 Objective Remarks GENERAL: Well-nourished, well-developed patient. CARDIOVASCULAR: Regular rate and rhythm without murmurs, gallops, or rubs. RESPIRATORY: Breath sounds equal bilaterally. No accessory muscle use. ABDOMEN/GI: Abdomen soft, non-tender, bowel sounds present. Incision: Clean, dry and intact. Fundus: Firm, non-tender at umbilicus. GENITOURINARY: Light to moderate bleeding. EXTREMITIES: No cyanosis or edema, non-tender, without signs of DVT. Medications and IVs Current Medications Medications (Trade) Dose Ordered Sig/Naila Route Start Time Stop Time Status Last Admin (NS Flush) 2 ml BID IV 02/23/16 09:00 (NS Flush) 2 ml UNSCH PRN IV 02/23/16 03:15 (Mylicon Chew) 80 mg QID PRN PO 02/23/16 03:15 (Tylenol) 650 mg Q6H PRN PO 02/23/16 03:15 (Motrin) 600 mg Q6H PRN PO 02/23/16 03:15 02/24/16 03:22 (Percocet 5-325 Mg) 1 tab Q4H PRN PO 02/23/16 03:15 (Percocet 5-325 Mg) 2 tab Q4H PRN PO 02/23/16 03:15 (Rola-Colace) 2 tab Q12H PRN PO 02/23/16 03:15 02/23/16 21:42 (Ambien) 5 mg HS PRN PO 02/23/16 03:15 (M-M-R Ii Inj) 0.5 ml ONCE ONCE SQ 02/24/16 16:00 02/24/16 16:01 (Boostrix Inj) 0.5 ml ONCE ONCE IM 02/24/16 16:00 02/24/16 16:01 (Zofran Inj) 4 mg Q6H PRN IV PUSH 02/23/16 03:15 (Phenergan Inj) 12.5 mg Q4H PRN IM 02/23/16 08:30 02/23/16 08:29 (Gustavo Partida MD R1) Assessment/Plan Problem List: (1) Post term over 40 weeks (2) Premature rupture of membranes (3) Positive GBS test (4) 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 - Phenergan for nausea/vomiting. - Advance diet as tolerated. - Encourage ambulation. - Monitor lochia - Monitor incision site - Percocet, ibuprofen PRN for pain control - Discuss control options - Anticipate discharge in 1-2 days. dw OB attending (Gustavo Partida MD R1) Attending Attestation Patient seen and examined with the resident under direct supervision, I agree with the assessment and plan. (Vladimir Anders MD) Gustavo Partida MD R1 Feb 24, 2016 07:20 Vladimir Anders MD Feb 24, 2016 10:18
[2016-02-24] MEDS ORDERED: MEASLES, MUMPS, RUBELLA VACCINE 0.5 ML VIAL SQ ONE (16:00)
[2016-02-24] MEDS ORDERED: DIPHTH/TETANUS/ACEL PERTUSSIS (BOOSTER) 0.5 ML VIAL/PFS IM ONE (16:00)
[2016-02-25] MEDS: IBUPROFEN 600 MG TAB PO PRN ×2 (03:50→11:23)
[2016-02-25] MEDS ORDERED: OXYC1TAB63 PO (06:28)
[2016-02-25] MEDS ORDERED: IBUP-232 PO (06:28)
[2016-02-25] MEDS ORDERED: SENN1TAB PO (06:28)
[2016-02-25] MEDS ORDERED: SIME80CH PO (06:28)
--- NOTE | 2016-02-25 07:23 | HHI.OB ---
Subjective Remarks 36 year old POD 2 after for failure to progress. Vital signs stable. No acute events. Formula and , encourage exclusive . Lochia is amount of menstrual period. Had bowel movement. Plans to follow up with women's care now. Wants to go home today. (Cas Cruz MD R2) Objective Result Diagram: 02/23/16 0548 Objective Remarks GENERAL: Well-nourished, well-developed patient. CARDIOVASCULAR: Regular rate and rhythm without murmurs, gallops, or rubs. RESPIRATORY: Breath sounds equal bilaterally. No accessory muscle use. ABDOMEN/GI: Abdomen soft, non-tender, bowel sounds present. Incision: Clean, dry and intact. Fundus: Firm, non-tender at umbilicus. GENITOURINARY: Light to moderate bleeding. EXTREMITIES: No cyanosis or edema, non-tender, without signs of DVT. Medications and IVs Current Medications Medications (Trade) Dose Ordered Sig/Naila Route Start Time Stop Time Status Last Admin (NS Flush) 2 ml BID IV 02/23/16 09:00 (NS Flush) 2 ml UNSCH PRN IV 02/23/16 03:15 (Mylicon Chew) 80 mg QID PRN PO 02/23/16 03:15 (Tylenol) 650 mg Q6H PRN PO 02/23/16 03:15 (Motrin) 600 mg Q6H PRN PO 02/23/16 03:15 02/25/16 03:50 (Percocet 5-325 Mg) 1 tab Q4H PRN PO 02/23/16 03:15 02/24/16 21:44 (Percocet 5-325 Mg) 2 tab Q4H PRN PO 02/23/16 03:15 (Rola-Colace) 2 tab Q12H PRN PO 02/23/16 03:15 02/23/16 21:42 (Ambien) 5 mg HS PRN PO 02/23/16 03:15 (Zofran Inj) 4 mg Q6H PRN IV PUSH 02/23/16 03:15 (Phenergan Inj) 12.5 mg Q4H PRN IM 02/23/16 08:30 02/23/16 08:29 (Cas Cruz MD R2) Assessment/Plan Problem List: (1) Premature rupture of membranes (2) Positive GBS test (3) 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 - Phenergan for nausea/vomiting. - Encourage ambulation. - Monitor lochia - Monitor incision site - Percocet, ibuprofen PRN for pain control - Discuss control options - Anticipate discharge today. dw OB attending (Cas Cruz MD R2) Attending Attestation Patient seen and evaluated with resident under direct supervision, agree with assessment and plan. (Homero Alonzo MD) Cas Cruz MD R2 Feb 25, 2016 07:23 Homero Alonzo MD Feb 25, 2016 08:45
--- NOTE | 2016-02-25 07:25 | HHI.DCPOC ---
Discharge Care Plan Diagnosis: (1) Status post Goals to Promote Your Health * To prevent worsening of your condition and complications * To maintain your health at the optimal level Directions to Meet Your Goals Take your medications as prescribed Follow your dietary instruction Follow activity as directed Keep your appointments as scheduled Take your immunizations and boosters as scheduled If your symptoms worsen call your PCP, if no PCP go to Urgent Care Center or Emergency Room Smoking is Dangerous to Your Health. Avoid second hand smoke Call the 24-hour hour crisis hotline for domestic abuse at Cas Cruz MD R2 Feb 25, 2016 07:24 Homero Alonzo MD Feb 25, 2016 08:46
[2016-02-25 08:00] VITALS: BP 107/85; PULSE 55; RESP 16; TEMP 98.3; O2SAT 98
[2016-03-06] MEDS ORDERED: LAMO25 PO (09:45)
[2016-03-06] MEDS ORDERED: WELLTAB39 PO (09:45)
[2016-03-20] MEDS ORDERED: SPRI28TA PO (14:44)
== END 2016-02-25 12:10 | disposition home or self-care (01) | DRG 766 ==
LOC: HOBED 03:35 → H2EB 03:58 → H1EA 02-23 04:38
PROVIDERS: ADMIT Obstetrics & Gynecology; ATTEND Obstetrics & Gynecology
PROC: 10D00Z1 Extraction of Products of Conception, Low, Open Approach (ICD-10-PCS; principal; 2016-02-23)
DX: O42.02 Full-term premature rupture of membranes, onset of labor within 24 hours of rupture (principal); O48.0 Post-term pregnancy; O62.2 Other uterine inertia; O99.824 Streptococcus B carrier state complicating childbirth; O09.523 Supervision of elderly multigravida, third trimester; O69.1XX0 Labor and delivery complicated by cord around neck, with compression, not applicable or unspecified; O77.0 Labor and delivery complicated by meconium in amniotic fluid; R11.2 Nausea with vomiting, unspecified; Z37.0 Single live birth; Z3A.40 40 weeks gestation of pregnancy; Z88.0 Allergy status to penicillin
CPT/HCPCS: 81001; 82805; 84112; 85007; 85027; 86850; 86900; 86901; 87086; 88307; 90715; 99285; J0131; J0690; J1885; J2274; J2405; J2550; J2590; J7120